=== PATIENT | male | born 1945 | race Caucasian/White ===

== ENCOUNTER 2020-04-23 13:57 | Emergency (ER) | payer MEDICARE, OTHER ==
[~2020-04-23] VITALS: Ht 172.7 cm; Wt 88.6 kg
[2020-04-23 14:03] VITALS: BP 120/75
[2020-04-23] MEDS ORDERED: acetaminophen 325mg tablet PO ONE (14:15)
[2020-04-23] MEDS ORDERED: ALBU6.7H9 INH (14:22)
[2020-04-23] MEDS ORDERED: AZIT250T2 PO (14:24)
[2020-04-23] MEDS ORDERED: PRED20TA PO (14:24)
== END 2020-04-23 14:40 | disposition home or self-care (01) ==
LOC: ER 13:57
DX: J20.9 Acute bronchitis, unspecified (principal); Z20.828 Contact with and (suspected) exposure to other viral communicable diseases; Z79.899 Other long term (current) drug therapy
CPT/HCPCS: 71045; 99283